=== PATIENT | male | born 1960 | race Two or more races ===

== ENCOUNTER 2023-12-25 04:05 | Day surgery (SDC) | payer BC ==
[2023-12-22 14:44] VITALS: BMI 29.1
[2023-12-25] MEDS ORDERED: LIDOCAINE HCL/PF 1% SDV 5ML VIAL ONE (07:21)
[2023-12-25] MEDS ORDERED: BUPIVACAINE HCL/PF 0.75% 10 ML VIAL ONE (07:21)
[2023-12-25 08:16] VITALS: RESP 18
[2023-12-25] MEDS ORDERED: ACETAMINOPHEN 500 MG TABLET (FP) PO PRN (08:38)
[2023-12-25] MEDS: LIDOCAINE 1% P/F 10 MG/ML VIAL PNB ONE ×2 (10:27)
[2023-12-25] MEDS: LIDO 2%/EPI 1:200000 PRESRVFRE (20 ML SDVIAL) PNB ONE ×2 (10:27)
[2023-12-25] MEDS: BUPIVACAINE HCL/PF 0.75% 10 ML VIAL PNB ONE ×2 (10:30)
[2023-12-25 13:52] VITALS: BP 136/79; PULSE 88; TEMP 97.5
== END 2023-12-25 10:55 | disposition home or self-care (01) ==
LOC: JASU-SURG 04:05
PROVIDERS: ATTEND Pain Medicine Pain Medicine
PROC: 3E0T3BZ Introduction of Anesthetic Agent into Peripheral Nerves and Plexi, Percutaneous Approach (ICD-10-PCS; principal; 2023-12-25 09:30)
DX: M47.816 Spondylosis without myelopathy or radiculopathy, lumbar region (principal)
CPT/HCPCS: 76000-TC-FY

== ENCOUNTER 2024-01-22 04:10 | Day surgery (SDC) | payer BC ==
[2024-01-19 16:39] VITALS: BMI 29.1
[2024-01-22] MEDS ORDERED: LIDOCAINE HCL/PF 1% SDV 5ML VIAL ONE (07:29)
[2024-01-22] MEDS ORDERED: BUPIVACAINE HCL/PF 0.75% 10 ML VIAL ONE (07:29)
[2024-01-22] MEDS ORDERED: ACETAMINOPHEN 500 MG TABLET (FP) PO PRN (09:16)
[2024-01-22 10:12] VITALS: RESP 20
[2024-01-22] MEDS: BUPIVACAINE HCL/PF 0.75% 10 ML VIAL NR ONE ×3 (12:20→12:23)
[2024-01-22] MEDS: LIDOCAINE HCL 1% PRESERVATIVE FREE - 30ML VIAL IJ ONE ×2 (12:20)
[2024-01-22 17:19] VITALS: BP 133/74; PULSE 82; TEMP 97.5
== END 2024-01-22 12:59 | disposition home or self-care (01) ==
LOC: JASU-SURG 04:10
PROVIDERS: ATTEND Pain Medicine Pain Medicine
PROC: 3E0T3BZ Introduction of Anesthetic Agent into Peripheral Nerves and Plexi, Percutaneous Approach (ICD-10-PCS; principal; 2024-01-22 11:30)
DX: M47.816 Spondylosis without myelopathy or radiculopathy, lumbar region (principal)
CPT/HCPCS: 76000-TC-FY

== ENCOUNTER 2024-03-04 04:42 | Day surgery (SDC) | payer BC ==
[2024-02-25 13:33] VITALS: BMI 29.1
[2024-03-04] MEDS ORDERED: BUPIVACAINE HCL/PF 0.75% 10 ML VIAL ONE (07:49)
[2024-03-04] MEDS ORDERED: LIDOCAINE HCL/PF 1% SDV 5ML VIAL ONE (07:50)
[2024-03-04] MEDS ORDERED: ACETAMINOPHEN 500 MG TABLET (FP) PO PRN (08:50)
[2024-03-04] MEDS: LIDOCAINE HCL 1% PRESERVATIVE FREE - 30ML VIAL INF ONE (18:58)
[2024-03-04] MEDS: LIDOCAINE HCL/PF 2% SDV 5ML VIAL INF ONE (18:58)
[2024-03-04] MEDS: BUPIVACAINE HCL/PF 0.75% 10 ML VIAL NR ONE (19:00)
[2024-03-04 19:31] VITALS: BP 128/64; PULSE 64; RESP 20; TEMP 97.2
== END 2024-03-04 19:30 | disposition home or self-care (01) ==
LOC: JASU-SURG 04:42
PROVIDERS: ATTEND Pain Medicine Pain Medicine
PROC: 015B3ZZ Destruction of Lumbar Nerve, Percutaneous Approach (ICD-10-PCS; 2024-03-04)
PROC: 015B3ZZ Destruction of Lumbar Nerve, Percutaneous Approach (ICD-10-PCS; principal; 2024-03-04 17:00)
DX: M47.816 Spondylosis without myelopathy or radiculopathy, lumbar region (principal)
CPT/HCPCS: 76000-TC-FY